=== PATIENT | female | born 2000 | race Two or more races ===

== ENCOUNTER 2018-11-23 21:43 | Emergency (ER) | payer BC ==
[2018-11-24 03:09] LABS: ABS Basophils 0 10^3/ul (0-0.2); ABS Eosinophils 0.1 10^3/ul (0-0.6); ABS Lymphocytes 1.9 10^3/ul (1.0-4.8); ABS Monocytes 0.8 10^3/ul (0-0.8); ABS Neutrophils 4.5 10^3/ul (1.5-7.7); ABS Nucleated RBC 0 10^3/ul; Eosinophil % 1.1 %; Hematocrit 37 % (33-41); Hemoglobin 12.1 g/dL (12.0-16.0); Lymphocyte % 26.5 %; Mean Corpuscular HGB Conc 33 g/dL (31-36); Mean Corpuscular Hemoglobin 27 pg (27-31); Mean Corpuscular Volume 81 fL (80-97); Mean Platelet Volume 7.2 fL (7.4-10.4); Nucleated Red Blood Cells % 0; Platelet Count 275 10^3/uL (150-450); Red Blood Count 4.59 10^6 /uL (3.70-4.87); Red Cell Distribution Width 13 % (10.5-15); White Blood Count 7.3 10^3/uL (3.5-10.8)
[2018-11-24 03:26] LABS: ALT 18 U/L (7-52); AST 19 U/L (13-39); Albumin 4.6 g/dL (3.2-5.2); Albumin/Globulin Ratio 1.4 (1-3); Alkaline Phosphatase 60 U/L (34-104); Anion Gap 7 mmol/L (2-11); BUN/Creatinine Ratio 23.1 (8-20); Blood Urea Nitrogen 15 mg/dL (6-24); C Reactive Protein 9.98 mg/L (<8.01); CO2 Carbon Dioxide 25 mmol/L (22-32); Calcium 9.2 mg/dL (8.6-10.3); Chloride 102 mmol/L (101-111); EGFR African American 140.6 (>60); EGFR Non-African American 116.2 (>60); Globulin 3.3 g/dL (2-4); Glucose 102 mg/dL (70-100); Potassium 3.7 mmol/L (3.5-5.0); Sodium 134 mmol/L (135-145); Total Protein 7.9 g/dL (6.4-8.9)
[2018-11-24 03:33] LABS: HCG Pregnancy < 0.60 mIU/mL
[2018-11-24 03:49] LABS: Rheumatoid Factor < 10 IU/mL (<15)
[2018-11-24 04:04] LABS: TSH (Thyroid Stimulating Horm) 1.98 mcIU/mL (0.34-5.60)
[2018-11-24] MEDS ORDERED: Naproxen TAB* 250 MG PO ONE (04:17)
--- NOTE | 2018-11-24 04:25 | ED ---
Lower Extremity - HPI Summary HPI Summary: The patient is a 18 y/o F presenting to [facility] with a chief complaint of myalgia in the bilateral calves for about the last month with worsening in the last week. The pain is rated 8/10 in severity, and is described as a sensation of the muscles feeling flexed and can't be relaxed. She additionally c/o a throbbing sensation in the wrists and bilateral ankle edema. She does not work out a lot. Normal health otherwise. LNMP: November 05. - History of Current Complaint Chief Complaint: EDExtremityLower Stated Complaint: PAIN IN CALVES AND ANKLES SWOLLEN PER PT Time Seen by Provider: 11/24/18 02:19 Hx Obtained From: Patient Mechanism Of Injury: Unknown Onset of Pain: Days Onset/Duration: Worse Since - the past week Severity Initially: Mild Severity Currently: Moderate Pain Intensity: 8 Pain Scale Used: 0-10 Numeric Timing: Constant Location: Is Discrete @ - bilateral calves Character Of Pain: Throbbing Associated Signs And Symptoms: Positive: Swelling - bilateral ankles, Other - throbbing in wrists Aggravating Factor(s): Other - palpation Alleviating Factor(s): Nothing Able to Bear Weight: Yes - Allergies/Home Medications Allergies/Adverse Reactions: Allergies Allergy/AdvReac Type Severity Reaction Status Date / Time No Known Allergies Allergy Verified 11/23/18 22:09 PMH/Surg Hx/FS Hx/Imm Hx Endocrine/Hematology History: Denies: Hx Diabetes Respiratory History: Denies: Hx Asthma - Surgical History Surgery Procedure, Year, and Place: none Infectious Disease History: No Infectious Disease History: Denies: Traveled Outside the [place] in Last 30 Days - Family History Known Family History: Negative: Diabetes - Social History Occupation: Student Alcohol Use: None Hx Substance Use: No Substance Use Type: Reports: None Hx Tobacco Use: No Smoking Status (MU): Never Smoked Tobacco Review of Systems Positive: Myalgia - in bilateral calves worse with palpation, some throbbing in wrists, Edema - in bilateral ankles Neurological: Other - sleep loss due to pain All Other Systems Reviewed And Are Negative: Yes Physical Exam - Summary Physical Exam Summary: Appearance: Well-appearing, Well-nourished, lying in bed comfortably Skin: Warm, dry, no obvious rash Eyes: sclera anicteric, no conjunctival pallor ENT: mucous membranes moist, pharynx appears normal Neck: Supple, nontender Respiratory: Clear to auscultation, no signs of respiratory distress Cardiovascular: Normal S1, S2. No murmurs. Normal distal pulses in tibial and radial bilaterally. Abdomen: Soft, nontender, normal active bowel sounds present Musculoskeletal: Strength/ROM Intact, both ankles are mildly swollen and warm, theres pain with ROM of the ankle, the calves appear normal and are nontender Neurological: A&Ox3, awake and alert, mentation is normal, speech is fluent and appropriate Psychiatric: affect is normal, does not appear anxious or depressed Triage Information Reviewed: Yes Vital Signs On Initial Exam: Initial Vitals Temp Pulse Resp BP Pulse Ox 99.3 F 111 16 140/87 99 11/23/18 22:05 11/23/18 22:05 11/23/18 22:05 11/23/18 22:05 11/23/18 22:05 Vital Signs Reviewed: Yes Diagnostics - Vital Signs Vital Signs Temp Pulse Resp BP Pulse Ox 11/23/18 22:05 99.3 F 111 16 140/87 99 - Laboratory Lab Results: Lab Results 11/24/18 11/24/18 Range/Units 03:01 03:01 WBC 7.3 (3.5-10.8) 10^3/uL RBC 4.59 (3.70-4.87) 10^6 /uL Hgb 12.1 (12.0-16.0) g/dL Hct 37 (33-41) % MCV 81 (80-97) fL MCH 27 (27-31) pg MCHC 33 (31-36) g/dL RDW 13 (10.5-15) % Plt Count 275 (150-450) 10^3/uL MPV 7.2 L (7.4-10.4) fL Neut % (Auto) 61.1 % Lymph % (Auto) 26.5 % [place] % (Auto) 10.9 % Eos % (Auto) 1.1 % Baso % (Auto) 0.4 % Absolute Neuts (auto) 4.5 (1.5-7.7) 10^3/ul Absolute Lymphs (auto) 1.9 (1.0-4.8) 10^3/ul Absolute Monos (auto) 0.8 (0-0.8) 10^3/ul Absolute Eos (auto) 0.1 (0-0.6) 10^3/ul Absolute Basos (auto) 0 (0-0.2) 10^3/ul Absolute Nucleated RBC 0 10^3/ul Nucleated RBC % 0 Sodium 134 L (135-145) mmol/L Potassium 3.7 (3.5-5.0) mmol/L Chloride 102 (101-111) mmol/L Carbon Dioxide 25 (22-32) mmol/L Anion Gap 7 (2-11) mmol/L BUN 15 (6-24) mg/dL Creatinine 0.65 (0.51-0.95) mg/dL Est GFR ( Amer) 140.6 (>60) Est GFR (Non-Af Amer) 116.2 (>60) BUN/Creatinine Ratio 23.1 H (8-20) Glucose 102 H (70-100) mg/dL Calcium 9.2 (8.6-10.3) mg/dL Total Bilirubin 0.30 (0.2-1.0) mg/dL AST 19 (13-39) U/L ALT 18 (7-52) U/L Alkaline Phosphatase 60 (34-104) U/L C-Reactive Protein 9.98 H (<8.01) mg/L Total Protein 7.9 (6.4-8.9) g/dL Albumin 4.6 (3.2-5.2) g/dL Globulin 3.3 (2-4) g/dL Albumin/Globulin Ratio 1.4 (1-3) TSH 1.98 (0.34-5.60) mcIU/mL Beta HCG, Quant < 0.60 mIU/mL Rheumatoid Factor < 10 (<15) IU/mL Result Diagrams: 11/24/18 03:01 11/24/18 03:01 Lab Statement: Any lab studies that have been ordered have been reviewed, and results considered in the medical decision making process. - Radiology Ankle XR Radiology Interpretation Completed By: Radiologist Summary of Radiographic Findings: No acute findings. ED physician has reviewed this report. - Ultrasound No standard instances Ultrasound Interpretation Completed By: Radiologist Summary of Ultrasound Findings: Venous Doppler US BLE: No acute findings. No evidence for deep vein thrombosis. ED physician has reviewed this report. Re-Evaluation - Re-Evaluation First Eval Re-Evaluation Time: 04:00 Change: Unchanged Comment: I spoke with the patient concerning results and discharge. Lower Extremity Course/Dx - Course Course Of Treatment: The patient is a 18 y/o F with a chief complaint of myalgia in the bilateral calves for about the last month with worsening in the last week. She additionally c/o a throbbing sensation in the wrists and bilateral ankle edema. Upon physical exam, the patient presents with both ankles are mildly swollen and warm, theres pain with ROM of the ankle, the calves appear normal and are nontender. In the ED course, the patient was administered Naproxen. Blood work reveals elevated BUN/Creatinine, glucose, CRP , and depressed MPV, sodium. Ankle XR is negative. Venous Doppler is normal. She is diagnosed with arthritis. She will be discharged home with prescription for Naproxen and follow up with [facility]. She agrees with this plan and understands the need for return to the ED for any new or worsening symptoms. - Diagnoses Provider Diagnoses: Arthritis Discharge - Sign-Out/Discharge Documenting (check all that apply): Patient Departure - Patient will be discharged home. Patient Received Moderate/Deep Sedation with Procedure: No - Discharge Plan Condition: Good Disposition: HOME Prescriptions: Naproxen [Naprosyn 500 mg tab] 500 mg PO BID #30 tablet Patient Education Materials: Arthritis (ED) Referrals: [facility] [Outside] Additional Instructions: I am not sure why your ankles are inflamed, but your blood tests did not show any significant abnormalities. Nonetheless you clearly have objective signs of inflammation in the ankle joints, so this will need followup and perhaps further testing if the symptoms persist. [facility] should see you this week , and they may want to send you to a specialist if they cannot make a diagnosis. For now I would recommend taking naproxen, I sent a prescription to your pharmacy. - Billing Disposition and Condition Condition: GOOD Disposition: Home - Attestation Statements Document Initiated by Geronimo: Yes Documenting Scribe: Lorena Jurado Provider For Whom Geronimo is Documenting (Include Credential): Dr. Artur Henriquez MD Scribe Attestation: Lornea López scribed for Dr. Artur Henriquez MD on 11/25/18 at 0535. Scribe Documentation Reviewed: Yes Provider Attestation: The documentation as recorded by the Lorena thorne accurately reflects the service I personally performed and the decisions made by me, Dr. Artur Henriquez MD Status of Scribe Document: Viewed
[2018-11-24 04:33] VITALS: BP 132/74
== END 2018-11-24 04:25 | disposition home or self-care (01) ==
LOC: ED 21:43
DX: M19.90 Unspecified osteoarthritis, unspecified site (principal); M79.89 Other specified soft tissue disorders
CPT/HCPCS: 36415; 80053; 84443; 84702; 85025; 86038; 86140; 86431; 99282